=== PATIENT | female | born 1955 | race African-American/Black ===

== ENCOUNTER 2018-02-21 06:50 | Inpatient (IN) | payer MEDICAID ==
[~2018-02-21] VITALS: Ht 162.6 cm; Wt 132.4 kg
[~2018-02-21 06:50] MED LIST: ACET-8386 GT; ACET-8386 PO; ESOM20EC GT; FLO.1 GT; LEVE1000 GT; MULT-1640 GT; [UNRECOGNIZED DRUG - CODE] GT
--- NOTE | 2018-02-21 06:50 | NUR ---
PT BIBA FOR GTUBE DISPLACEMENT PLACED ON CARESCAPE VENT WITH SETTINGS AC16 VT 500 PEEP 5 FIO2 50% ALARMS AUDIBLE AND FUNCTIONING PROPERLY, AMBU BAG AT BEDSIDE, SNX PT FOR C&S SMALL AMT OF THIN WHITE SECRETIONS, B\S ARE COARSE BILATERALLY, PT IS TRACH WITH PORTEX 8 AND SKIN INTEGRITY IS INTACT VENT IS PLUGGED INTO RED OUTLET PT IS AWAKE AND ALERT WITH NO SIGNS OF DISTRESS NOTED AT THIS TIME
--- NOTE | 2018-02-21 06:50 | NUR ---
PATIENT PRESENTS TO ED AFTER REMOVING G-TUBE AT 2:30PM ON 02/20/18. PT BIB EMS. SHE IS NON-VERBAL. SHE IS ON MECH.VENT. VSS UPON ER ARRIVAL. DENIES N/V/D; SKIN IS PINK/WARM/DRY; AAOX4 WITH EVEN AND STEADY GAIT; LUNGS CLEAR BL; HR EVEN AND REGULAR; PT DENIES ANY FEVER, CP, SOB, OR COUGH AT THIS TIME; PATIENT STATES PAIN OF 0/10 AT THIS TIME; VSS; PATIENT POSITIONED FOR COMFORT; HOB ELEVATED; BEDRAILS UP X2; BED DOWN. ER MD MADE AWARE OF PT STATUS. CONTINUE TO MONITOR.
--- NOTE | 2018-02-21 06:50 | NUR ---
PT BIB ALS TO ER BED 06
[2018-02-21 06:53] VITALS: BP 183/87
[2018-02-21 06:55] VITALS: BP 173/58
--- NOTE | 2018-02-21 06:55 | NUR ---
RT AT BEDSIDE PLACED PT ON MECH. VENT. PT BAGGED WITH 100%02 WHILE VENTILATORY PREPARED. PT TOLERATED PROCEDURE WELL.
--- NOTE | 2018-02-21 07:00 | NUR ---
Nancy navas in [facility] - 02/21/18 at 0714 by HARRISS RECE4
--- NOTE | 2018-02-21 07:00 | NUR ---
RECEIVES REPORT FROM TIA MENDEZ FOR CONTINUITY OF CARE.
--- NOTE | 2018-02-21 07:01 | NUR ---
RT AT BED SIDE FOR MECH. VENT SET UP
--- NOTE | 2018-02-21 07:15 | NUR ---
PT TO ER FOR G-TUBE REPLACEMENT S/P PULLING IT OUT YRSTERDAY AT 1430. PER EMS PT IS VENT DEPENDENT AND HAS HX OF CVA AND HX OF AGGRESSIVE BEHAVIOR. NON-AMBULATORY. MINIMAL MOVEMENT IN EXTREMITIES. +PEDAL PULSES, <3SEC CAP REFILL. NO N/V/D NOTED ; SKIN IS PINK/WARM/DRY WITH DRESSING OVER G-TUBE OPENING; AAOX SELF AND FOLLOWS SIMPLE COMMANDS ; LUNGS CLEAR BL WITH SHIGHT EXPRATOPRY WHEEZES ; HR EVEN AND REGULAR; PT IS AFEBRILE. NO SOB NOTED ; PATIENT STATES PAIN OF 0/10 AT THIS TIME; VSS; PATIENT POSITIONED FOR COMFORT; HOB ELEVATED; BEDRAILS UP X2; BED DOWN. ER MD MADE AWARE OF PT STATUS.
[2018-02-21] MEDS ORDERED: LAC GT (07:33)
[2018-02-21] MEDS ORDERED: ROB1 GT (07:33)
[2018-02-21] MEDS ORDERED: OSC500 PO (07:33)
[2018-02-21] MEDS ORDERED: MAGN400S60 GT (07:33)
[2018-02-21] MEDS ORDERED: ARIP30TA1 GT (07:33)
[2018-02-21] MEDS ORDERED: FLO.1 GT (07:33)
[2018-02-21] MEDS ORDERED: VALP-22 GT ×2 (07:33→13:18)
[2018-02-21] MEDS ORDERED: ACET-2619 PO (07:33)
[2018-02-21] MEDS ORDERED: [UNRECOGNIZED DRUG - CODE] RC (07:33)
[2018-02-21] MEDS ORDERED: CHLO480L1 PO (07:33)
[2018-02-21] MEDS ORDERED: ACET-2619 GT (07:33)
[2018-02-21] MEDS ORDERED: NA P133N1 RC (07:33)
[2018-02-21] MEDS ORDERED: ATI.5 GT (07:33)
[2018-02-21] MEDS ORDERED: NACL 0.9% 1,000 ML IV SCH (08:06)
[2018-02-21] MEDS ORDERED: ACETAMINOPHEN 325 MG TAB PO PRN ×2 (08:10→13:15)
[2018-02-21] MEDS ORDERED: DEXTROSE 50% 50 ML SYR IVP PRN (08:10)
[2018-02-21] MEDS ORDERED: ZOLPIDEM 5 MG TAB PO PRN (08:10)
[2018-02-21] MEDS ORDERED: INSULIN LISPRO SLIDING SCALE 100 UNITS/ML VIAL SUBQ PRN (08:10)
--- NOTE | 2018-02-21 08:40 | NUR ---
XRAY AT BEDSIDE
--- NOTE | 2018-02-21 08:45 | NUR ---
AWATING TELE ROOM TO BE READY.
[2018-02-21 08:54] LABS: BASOPHILS % (AUTO) 0.2 % (0.0-2.0); EOSINOPHILS # (AUTO) 0.1 K/uL (0-0.4); EOSINOPHILS % (AUTO) 1.6 % (0.0-4.0); HEMATOCRIT 37.6 % (36-48); HEMOGLOBIN 12.1 g/dL (12.0-16.0); LYMPHOCYTES # (AUTO) 2.9 K/uL (2.5-16.5); LYMPHOCYTES % (AUTO) 37.8 % (20.5-51.1); MEAN CORPUSCULAR HEMOGLOBIN 27 pg (27-31); MEAN CORPUSCULAR HGB CONC 32 g/dL (33-37); MEAN CORPUSCULAR VOLUME 82.2 fL (80-94); MONOCYTES # (AUTO) 0.4 K/uL (0.8-1.0); MONOCYTES % (AUTO) 5.6 % (1.7-9.3); NEUTROPHILS # (AUTO) 4.2 K/uL (1.8-7.7); NEUTROPHILS % (AUTO) 54.8 % (42.2-75.2); PLATELET COUNT (AUTO) 147 K/uL (140-450); RED BLOOD CELL COUNT(AUTO) 4.58 MIL/uL (4.20-5.40); RED CELL DISTRIBUTION WIDTH 15.9 % (11.6-13.7); WHITE BLOOD COUNT (AUTO) 7.7 K/uL (4.8-10.8)
[2018-02-21] MEDS: DOCUSATE SODIUM 100 MG GELCAP PO SCH ×3 (09:00→21:51)
--- NOTE | 2018-02-21 09:02 | NUR ---
VENT CHECK NO SXN NEEDED AIRWAY IS PATENT AND PT IS RESTING
--- NOTE | 2018-02-21 09:20 | NUR ---
PATIENT ARRIVED ON FLOOR VIA GURNEY ACCOMPANIED BY 2 ER NURSES. REPORT RECEIVED FROM BUILDING MANAGER, ALLISON, AT BEDSIDE FOR CONTINUITY OF CARE. PATIENT DIAGNOSIS IS G-TUBE DISPLACEMENT. PATIENT CAME FROM [facility] [place] 2[place] PATIENT ALERT AND AWAKE, SPEECH IS GARBLED, BUT PATIENT CAN VERBALIZED, "NO", "I DON'T WANT IT". IV ACCESS TO L HAND #22 G, INTACT, PATENT, AND ASYMPTOMATIC. PATIENT IS TRACH TO VENT, SETTINGS: AC 16, TV 500, FIO2 50, PEEP 5. NO SIGNS OF DISTRESS OR SOB NOTED. LUNG SOUNDS CLEAR WITH SOME WHEEZES ON EXPIRATORY, BOWEL SOUNDS PRESENT, UPDATED PATIENT ON PLAN OF CARE AND UPDATED THE BOARD. PATIENT HAS DRESSING ON LEFT UPPER MIDDLE QUADRANT WHERE STOMA IS PRESENT. PATIENT ALSO HAS NON INTACT WOUND ON LOWER BUTTOCKS. PICTURE TAKEN. MRSA SCREENING DONE. ORIENTED PATIENT TO ROOM AND CALL LIGHT. SAFETY PRECAUTION IN PLACE, BED ALARM ON, BED ON LOWEST SETTING, CALL LIGHT WITHIN REACH. WILL CONTINUE TO MONITOR PATIENT.
[2018-02-21 09:30] VITALS: BP 169/70
--- NOTE | 2018-02-21 09:30 | NUR ---
Patient will be admitted to care of DR HART. Admited to TELE. Will go to room 123B. Belongings list completed. Report to REED MENDEZ .
--- NOTE | 2018-02-21 09:35 | NUR ---
PATIENT CHANGED INTO NEW GOWN. PATIENT CLEANED AND DRIED. PATIENT TOLERATED IT WELL. SAFETY PRECAUTION IN PLACE, BED ON LOWEST SETTING, CALL LIGHT WITHIN REACH, WILL CONTINUE TO MONITOR PATIENT.
[2018-02-21 09:52] LABS: PROTHROMBIN TIME 11.4 secs (10.8-13.4)
[2018-02-21 10:03] LABS: FREE T4 (FREE THYROXINE) 0.86 ng/dL (0.76-1.46); MAGNESIUM 1.9 mg/dL (1.8-2.4); PHOSPHORUS 3.6 mg/dL (2.5-4.9); THYROID STIMULATING HORMONE 2.35 uIU/mL (0.34-3.74)
--- NOTE | 2018-02-21 10:05 | NUR ---
PATIENT SUCTIONED, SMALL WHITE SECRETIONS PRESENT. PATIENT RESTING IN BED, NO SIGNS OF DISTRESS OR SOB NOTED. SAFETY PRECAUTION IN PLACE, CALL LIGHT WITHIN REACH, WILL CONTINUE TO MONITOR PATIENT.
--- NOTE | 2018-02-21 10:10 | NUR ---
ULTRA SOUND TECH IN TO DO ULTRASOUND. PATIENT YELLED "GET OUT", " I DON'T WANT IT". PATIENT REFUSED.
--- NOTE | 2018-02-21 10:15 | NUR ---
CENTRAL SUPPLY CALLED FOR SCDS FOR PATIENT. SCDS BROUGHT TO FLOOR. PATIENT REFUSED SCDS. PATIENT ALSO REFUSED IV FLUIDS.
--- NOTE | 2018-02-21 11:06 | NUR ---
NEW ORDER IN TO INSERT ADAME CATHETER, INFORMED PATIENT OF THIS. PATIENT AGITATED AND CONFUSED, STARTED YELLING "NO", "GET OUT OF HERE".
--- NOTE | 2018-02-21 11:12 | NUR ---
RT ALLAN IN TO SEE THE PATIENT. PATIENT AGITATED AND YELLED "NO", "GET OUT", "I DON'T WANT IT".
--- NOTE | 2018-02-21 11:14 | NUR ---
vent check, sxn pt small amt of white secretions, pt is agitated no signs of distress noted at this time
--- NOTE | 2018-02-21 11:20 | NUR ---
SPOKE TO RT SANJANA, ABOUT PATIENT'S SPUTUM SAMPLE SAID IT WAS IN GIVEN TO ER STAFF. CALLED LAB, THEY STATED THAT THEY DID NOT RECEIVED SAMPLE YET. ER STAFF STATED THAT IT WAS GIVEN TO BANDAR FROM LAB. LAB CONFIRMED THEY NOW HAVE SPUTUM SAMPLE.
[2018-02-21] MEDS: BLOOD GLUCOSE MONITORING 1 DEV DEV FS SCH ×3 (11:30→20:24)
--- NOTE | 2018-02-21 11:30 | NUR ---
PATIENT REFUSED BLOOD SUGAR CHECK AND BLOOD PRESSURE. PATIENT SHOUTED "NO" " I DON'T WANT IT" "GET OUT OF HERE".
--- NOTE | 2018-02-21 11:32 | NUR ---
ABRASIVE WORKER IN TO DO ECHO, PATIENT YELLED "GET OUT", "I DON'T WANT IT". DR. ANN AWARE.
--- NOTE | 2018-02-21 11:35 | NUR ---
PT REFUSED ECHO, STARTED YELLING "GET OUT" AND BEING VERY COMBATIVE. NOTIFIED DR. ANN AND NURSE.
--- NOTE | 2018-02-21 11:45 | NUR ---
BONILLA RAZO CALLED AT [phone]. SHE IS PATIENT'S DAUGHTER IN LAW, LIVES IN [place]. UPDATED HER WITH PATIENT'S STATUS AND CONDITION. SHE VERBALIZED UNDERSTANDING.
--- NOTE | 2018-02-21 12:11 | NUR ---
DR PRINCE AND DR. ANN IN TO SEE THE PATIENT. WILL AWAIT FOR HIS ORDERS.
--- NOTE | 2018-02-21 12:34 | NUR ---
VENT CHECK, NO SXN REQUIRED AT THIS TIME, AIRWAY IS PATENT AND PT IS SLEEPING WITH NO SIGNS OF DISTRESS NOTED AT THIS TIME
--- NOTE | 2018-02-21 12:43 | NUR ---
RECEIVED INFORMATION FROM DIAZ FROM [employer]. I CALLED HER AT [phone] AND SHE SAID SHE IS THE CM AND TO FAX REVIEW TO [phone]. FAXED INITIAL REVIEW. TRACKING [id number]
[2018-02-21 12:56] LABS: ALBUMIN 2.5 g/dL (3.4-5.0); ANION GAP 8.6 (8-16); CARBON DIOXIDE 30.3 mmol/L (21-32); CREATININE 0.9 mg/dL (0.6-1.3); POTASSIUM 3.9 mmol/L (3.5-5.1); TOTAL BILIRUBIN 0.4 mg/dL (0.0-1.0)
[2018-02-21] MEDS: DEXT 5% / NACL 0.45% 1,000 ML IV SCH ×3 (13:00→23:51)
--- NOTE | 2018-02-21 13:00 | NUR ---
PATIENT WAS SLEEPING, OFFERED TO CHECK HER BLOOD SUGAR AND BLOOD PRESSURE AGAIN, PATIENT SHOUTED "NO", "GET OUT OF HERE", "DON'T TOUCH ME".
[2018-02-21] MEDS ORDERED: MAGNESIUM HYDROXIDE 2400 MG/30 ML UDC GT PRN (13:15)
[2018-02-21] MEDS ORDERED: GLYCOPYRROLATE 1 MG TAB GT SCH (13:15)
[2018-02-21] MEDS ORDERED: HYDROcodone/APAP 5/325 MG 1 TAB TAB GT PRN ×2 (13:15)
[2018-02-21] MEDS ORDERED: BISACODYL 10 MG SUPP RC PRN (13:15)
[2018-02-21] MEDS ORDERED: ACETAMINOPHEN 325 MG TAB GT PRN (13:15)
--- NOTE | 2018-02-21 13:15 | NUR ---
DR. WOODARD IN TO SEE THE PATIENT. WILL WAIT FOR HIS UPDATED ORDERS.
--- NOTE | 2018-02-21 13:20 | NUR ---
NEW ORDERS IN FOR MEDICATIONS VIA GTUBE. DR. GARRISON INFORMED THAT PATIENT CURRENTLY DOES NOT HAVE GTUBE. NEW GTUBE WILL BE INSERTED BY DR. PRINCE TOMORROW 02/22/18. DR. GARRISON AWARE. NO NEW ORDERS AT THE MOMENT.
--- NOTE | 2018-02-21 14:04 | NUR ---
PATIENT'S SON, PARMINDER RAZO, WAS CALLED. HE VERBALLY GAVE CONSENT VIA TELEPHONE FOR PATIENT'S EGD WITH PEG PROCEDURE TOMORROW 02/22/[address] PRINCE. WITNESSED BY END STAPLER, KAT, AND DR. GARRISON. PATIENT NOW RESTING IN BED, SLEEPING, NO SIGNS OF DISTRESS OR SOB NOTED. BREATHING EVEN AND UNLABORED. SAFETY PRECAUTION IN PLACE, CALL LIGHT WITHIN REACH, WILL CONTINUE TO MONITOR PATIENT.
--- NOTE | 2018-02-21 14:24 | NUR ---
PATIENT SLEEPING SOUNDLY IN BED, NO SIGNS OF DISTRESS OR SOB NOTED. SAFETY PRECAUTION IN PLACE, CALL LIGHT WITHIN REACH, WILL CONTINUE TO MONITOR PATIENT.
[2018-02-21] MEDS ORDERED: ALBUTEROL SULFATE/IPRATROPIU 3 ML SOL IH PRN (14:50)
[2018-02-21] MEDS ORDERED: GLYCOPYRROLATE 1 MG TAB GT PRN (14:50)
[2018-02-21] MEDS ORDERED: ENALAPRILAT 2.5 MG/2 ML VIAL IVP PRN (14:55)
--- NOTE | 2018-02-21 15:00 | NUR ---
VENT CHECK, NO SXN NEEDED AIRWAY IS PATENT AND PT IS SLEEPING WITH NO SIGNS OF DISTRESS NOTED AT THIS TIME Addendum: 02/21/18 at 1503 by Karol Brannon RT DECREASED FIO2 TO 40%
[2018-02-21 16:00] VITALS: BP 159/79
[2018-02-21] MEDS ORDERED: Z-GUARD PASTE TP ONE (16:10)
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
[2018-02-21] MEDS: Z-GUARD PASTE TP SCH (17:10)
--- NOTE | 2018-02-21 17:10 | NUR ---
BLOOD SUGAR 86, NO INSULIN COVERAGE NEEDED. PATIENT RESTING IN BED, SAFETY PRECAUTION IN PLACE, CALL LIGHT WITHIN REACH, WILL CONTINUE TO MONITOR PATIENT.
--- NOTE | 2018-02-21 17:15 | NUR ---
vent check, sxn pt moderate amt of thick white secretions, trach care done : changed trach gauze and inner cannula pt is awake with no signs of distress noted
--- NOTE | 2018-02-21 19:20 | NUR ---
REPORT GIVEN TO SALES ACCOUNT COORDINATOR NURSE AT BEDSIDE FOR CONTINUITY OF CARE. PATIENT IN STABLE CONDITION.
--- NOTE | 2018-02-21 19:20 | NUR ---
RECEIVED PATIENT LYING BED ON VENTILATOR.IV INFUSING WELL AND FC IN PLACE. CALL LIGHT WITHIN REACH. WILL CONTINUE TO MONITOR.
[2018-02-21] MEDS ORDERED: NON-FORMULARY ITEM (Chlorhexidine Gluconate (Periogard 480 Ml) 15 ML) PO SCH (19:30)
--- NOTE | 2018-02-21 19:46 | NUR ---
PT IN THE SAME VENT SETTINGS, NO SECRETION, PT ALERT AND AWAKE, NO DISTRESS NOTED
[2018-02-21 20:00] VITALS: BP 117/57
[2018-02-21] MEDS: levETIRAcetam 100 MG/ML ORASYR GT SCH ×2 (21:00→21:49)
[2018-02-21] MEDS ORDERED: CALCIUM CARBONATE 500 MG TAB GT SCH (21:00)
[2018-02-21] MEDS: VALPROIC ACID 250 MG/5 ML UDC GT SCH (21:00)
[2018-02-21] MEDS ORDERED: VALPROIC ACID 250 MG/5 ML UDC GT SCH (21:00)
--- NOTE | 2018-02-21 21:00 | NUR ---
MEDS NOT GIVEN DUE TO G-TUBE DISPLACEMENT. RESIDENT AWARE.
--- NOTE | 2018-02-21 21:20 | NUR ---
PATIENT TURNED AND REPOSITIONED. PATIENT IN COMFORTABLE POSITION. PATIENT HAVE SOME RESISTANCE DURING REPOSITIONING ASSISTED BY CLINICAL ANALYST FOR SAFETY. WILL CONTINUE TO MONITOR.
--- NOTE | 2018-02-21 22:58 | NUR ---
SEEN PATIENT ASLEEP ON BED WITH TRACH TO VENT. MEDS NOT GIVEN DUE TO G-TUBE DISPLACEMENT. RESIDENT AWARE. NO S/S OF DISTRESS NOTED AT THIS TIME. WILL CONTINUE TO MONITOR.
--- NOTE | 2018-02-21 23:20 | NUR ---
PATIENT REFUSED TO BE REPOSITION AND BECOME AGITATED.
[2018-02-21 23:58] VITALS: BP 140/72
[2018-02-22] VITALS (7 sets, daily range): BP systolic 139–155; BP diastolic 68–93
[2018-02-22 00:26] LABS: APPEARANCE,URINE SL CLOUDY (CLEAR); BILIRUBIN,URINE NEGATIVE (NEGATIVE); BLOOD, URINE 2+ (NEGATIVE); COLOR,URINE YELLOW (YELLOW); LEUKOCYTE ESTERASE ,URINE 3+ (NEGATIVE); NITRITE, URINE NEGATIVE (NEGATIVE); PH,URINE 8.5 (5.0-9.0); UGLUCOSE NEGATIVE (NEGATIVE)
[2018-02-22 00:52] LABS: RBC,URINE 20-50 /HPF (0-5)
[2018-02-22 00:53] LABS: WBC,URINE TOO MANY TO COUNT /HPF (0-5)
--- NOTE | 2018-02-22 02:43 | NUR ---
AM/ALISA CARE DONE. PATIENT REPOSITIONED TO HER SIDE WITH 3 PEOPLE ASSIST. PATIENT RESISTANCE DURING THE AM CARE. NO S/S OF DISTRESS NOTED AT THIS TIME. WILL CONTINUE TO MONITOR.
--- NOTE | 2018-02-22 04:25 | NUR ---
SEEN PATIENT ASLEEP COMFORTABLE WITH TRACH TO VENT. NO S/S OF DISTRESS NOTED AT THIS TIME. WILL CONTINUE TO MONITOR.
[2018-02-22] MEDS: VALPROIC ACID 250 MG/5 ML UDC GT SCH ×3 (05:00→20:34)
[2018-02-22] MEDS: BLOOD GLUCOSE MONITORING 1 DEV DEV FS SCH ×4 (05:36→20:51)
--- NOTE | 2018-02-22 06:35 | NUR ---
RECEIVED PT ON NOTED SETTINGS PTS TRACH PORTEX 8 IS SECURE PT IN HF ASLEEP NO APPARENT DISTRESS BMV HOB ALARMS ARE ON AND AUDIBLE VENT PLUGGED INTO RED OUTLET
[2018-02-22 06:38] LABS: BASOPHILS % (AUTO) 0.2 % (0.0-2.0); EOSINOPHILS # (AUTO) 0.1 K/uL (0-0.4); EOSINOPHILS % (AUTO) 0.9 % (0.0-4.0); HEMATOCRIT 37.3 % (36-48); LYMPHOCYTES # (AUTO) 3.9 K/uL (2.5-16.5); MEAN CORPUSCULAR HEMOGLOBIN 27 pg (27-31); MEAN CORPUSCULAR HGB CONC 32 g/dL (33-37); MEAN CORPUSCULAR VOLUME 82.7 fL (80-94); MONOCYTES # (AUTO) 0.6 K/uL (0.8-1.0); MONOCYTES % (AUTO) 7.2 % (1.7-9.3); NEUTROPHILS # (AUTO) 4.2 K/uL (1.8-7.7); NEUTROPHILS % (AUTO) 47.7 % (42.2-75.2); PLATELET COUNT (AUTO) 144 K/uL (140-450); RED BLOOD CELL COUNT(AUTO) 4.51 MIL/uL (4.20-5.40); RED CELL DISTRIBUTION WIDTH 15.8 % (11.6-13.7); WHITE BLOOD COUNT (AUTO) 8.9 K/uL (4.8-10.8)
[2018-02-22 06:58] LABS: ANION GAP 11.9 (8-16); POTASSIUM 3.9 mmol/L (3.5-5.1)
[2018-02-22 07:05] LABS: MAGNESIUM 1.8 mg/dL (1.8-2.4); PHOSPHORUS 3.5 mg/dL (2.5-4.9)
[2018-02-22 07:07] LABS: CHOL/HDL RATIO 3.3 (1-4.5)
--- NOTE | 2018-02-22 07:20 | NUR ---
RECEIVED PT REPORT FROM GUEST ADVISOR RN. PT IS SLEEPING, AROUSED TO NAME. EGD/PEG SCHEDULE AT 1000, MADE PT AWARE. PATIENT CAME FROM [facility]. IV ACCESS TO L HAND #22 G, INTACT, PATENT, AND ASYMPTOMATIC. PATIENT HAS DRESSING ON UPPER ABD. PATIENT IS TRACH TO VENT, SETTINGS: AC 16, TV 500, FIO2 40, PEEP 5. ON O2 MONITORING, 99% SAT. NO SIGNS OF DISTRESS OR SOB NOTED. LUNG SOUNDS CLEAR, BOWEL SOUND PRESENTED. UPDATED THE BOARD. SAFETY PRECAUTION IN PLACE, BED ALARM ON, BED ON LOWEST SETTING, CALL LIGHT WITHIN REACH. WILL CONTINUE TO MONITOR PATIENT.
--- NOTE | 2018-02-22 07:23 | NUR ---
ENDORSEMENT GIVEN TO AM SHIFT NURSE FOR CONTINUITY OF CARE. PATIENT IN STABLE CONDITION.
--- NOTE | 2018-02-22 08:50 | NUR ---
SPOKE WITH DR GARRISON REGARDING ROCEPHIN. HE SAID THE ALLERGIC RXN IS RASH. OK TO GIVE BUT JUST MONITOR FOR ANAPHYLACTIC RXN.
[2018-02-22] MEDS ORDERED: LACTOBACILLUS ACIDOPHILUS GT SCH (09:00)
[2018-02-22] MEDS ORDERED: [UNRECOGNIZED DRUG - OTHER] GT SCH (09:00)
[2018-02-22] MEDS ORDERED: [UNRECOGNIZED DRUG - OTHER] GT SCH (09:00)
[2018-02-22] MEDS ORDERED: VIT K GT SCH (09:00)
[2018-02-22] MEDS ORDERED: IRON GT SCH (09:00)
[2018-02-22] MEDS ORDERED: MULTIVITAMIN MIN GT SCH (09:00)
[2018-02-22] MEDS ORDERED: fentaNYL 0.05 MG/ML VIAL ONE (09:43)
[2018-02-22] MEDS ORDERED: MIDAZOLAM 2 MG/2 ML VIAL ONE (09:43)
[2018-02-22] MEDS: DEXT 5% / NACL 0.45% 1,000 ML IV SCH ×2 (09:49→23:31)
--- NOTE | 2018-02-22 10:05 | NUR ---
NO S/S OF ANAPHYLACTIC REACTION NOTED. NO RASH OR HIVES, NO SWELLING, NO RESPIRATORY DISTRESS NOTED.
--- NOTE | 2018-02-22 12:21 | NUR ---
INCREASE FIO2 TO [address] PRINCE PT DESAT
--- NOTE | 2018-02-22 12:27 | NUR ---
DECREASE FIO2 TO PREVIOUS 40 SPO2 99
[2018-02-22] MEDS ORDERED: diphenhydrAMINE 50 MG/ML VIAL ONE (12:52)
--- NOTE | 2018-02-22 13:00 | NUR ---
Social Workers Notes : I attempted to call BONILLA RAZO at [phone]. No response and I left her a voicemail MGS with my contact information and request for call back.
--- NOTE | 2018-02-22 13:25 | NUR ---
PEG TUBE INSERTED BY DR Keith PRINCE, RESIDUAL CHECKED 0ML, 30ML GAS. MEDICATIONS INCLUDING 9 CLOCK MED GIVEN BY GRAVITY. OK TO GIVE [address] GARRISON. PT TOLERATED WELL.
[2018-02-22] MEDS ORDERED: fentaNYL 0.05 MG/ML VIAL IVP ONE (13:30)
[2018-02-22] MEDS ORDERED: MIDAZOLAM 2 MG/2 ML VIAL IVP ONE (13:30)
[2018-02-22] MEDS ORDERED: diphenhydrAMINE 50 MG/ML VIAL IVP ONE (13:30)
[2018-02-22] MEDS: levETIRAcetam 100 MG/ML ORASYR GT SCH ×2 (13:33→20:34)
[2018-02-22] MEDS: DOCUSATE SODIUM 100 MG GELCAP PO SCH ×2 (13:34→20:34)
[2018-02-22] MEDS: LACTOBACILLUS RHAMNOSUS GG 1 EACH CAP GT SCH (13:34)
[2018-02-22] MEDS: MULTIVITAMIN/MINERALS 15 ML UDBTL GT SCH (13:34)
[2018-02-22] MEDS: ARIPiprazole 10 MG TAB GT SCH (13:34)
[2018-02-22] MEDS: FLUDROCORTISONE 0.1 MG TAB GT SCH (13:35)
--- NOTE | 2018-02-22 14:06 | NUR ---
02/22/18 RD INITIAL ASSESSMENT COMPLETED PLEASE REFER TO NUTRITION ASSESSMENT UNDER CARE ACTIVITY FOR ESTIMATED NUTRITIONAL NEEDS. 1. CONTINUE NPO DIET MEDICALLY NECESSARY. 2. WHEN APPROPRIATE, RECOMMEND TUBE FEEDING THROUGH PEG TUBE: PEPTAMEN AF AT GOAL RATE OF 45 ML/HR (1080 TOTAL ML) WITH 75ML Q4H WATER FLUSHES, PROVIDING 1296 KCAL, 82 GM PROTEIN, AND 873ML FREE WATER. GOAL RATE IS ADEQUATE TO MEET 104% OF ESTIMATED KCAL NEEDS. 3. RECOMMEND PROSOURCE NO CARB TID (180 KCAL/DAY, 45GM PROTEIN/DAY) TO BETTER MEET ESTIMATED PROTEIN NEEDS. WITH TF FORMULA, THIS ADEQUATELY MEETS 89% PROTEIN NEEDS. 4. RD TO FOLLOW-UP 2-3 DAYS, HIGH RISK DASHAWN KIM RD
--- NOTE | 2018-02-22 15:02 | NUR ---
WOUND CARE EVALUATION NOTE: REASON FOR WOUND EVALUATION: LEFT BUTTOCK AND SACRAL WOUNDS SKIN ASSESSMENT DONE WITH PRIMARY RN ON THIS 62 Y/O FEMALE PATIENT FROM [facility] TO [facility], WITH INITIAL DIAGNOSIS OF DISLODGED OF G-TUBE. PAST MEDICAL HISTORY INCLUDE HTN, COPD, DM, SEIZURE AND GERD. ALL ABOVE INFORMATION WAS OBTAINED FROM THE ADMISSION H&P. LABS ARE WBC 8.9, H/H 12/37.3, GLUCOSE 100 AND, ALBUMIN 2.5. TRACH TO VENT. PT SKIN WARM TO TOUCH, NO EDEMA, BLE WITH NO HAIR GROWTH AND BILATERAL PEDAL PULSES PRESENT AND NORMAL. #16 F/C PATENT WITH CLEAR LARGE AMOUNT OF URINE OUTPUT. INCONTINENT OF BOWEL. PLAN OF CARE AND PRESSURE PREVENTIVE MEASURES DISCUSSED WITH PRIMARY RN. CLARIFICATION: NO ACTIVE WOUNDS TO LEFT BUTTOCK AND SACRAL. BOTH AREAS SKIN INTACT. INTEGUMENTARY: -TRACH ALISA-STOMA SKIN CLEAN AND INTACT -MID ABDOMEN OLD HEALED SURGICAL SCAR - MID ABDOMEN OLD GT SITE REDNESS, WITH SMALL AMOUNT OF DRY BLOOD. -LUQ NEW GT SITE, ALISA- STOMA SKIN DRY AND CLEAN -INTERTRIGO TO LOWER ABDOMINAL FOLD - INCONTINENT ASSOCIATE DERMATITIS REDNESS TO INTERGLUTEAL CLEFT AND GROOVE BETWEEN BUTTOCKS -INCONTINENT ASSOCIATE DERMATITIS TO R/L POSTERIOR THIGHS WITH PARTIAL THICKNESS EROSION, NO ODOR, MOIST TO TOUCH, RIGHT POSTERIOR THIGH 6X11X0.1 CM AND LEFT POSTERIOR THIGH 7X15 CM RECOMMENDATIONS: -CLEANSE MID ABDOMEN OLD GT SITE WITH NS. PAT DRY, APPLY DRY DRESSING QD -APPLY INTER DRY TO LOWER ABDOMINAL FOLD CHANGE Q7 DAYS AND PRN. -CLEANSE INTERGLUTEAL CLEFT AND GROOVE BETWEEN BUTTOCKS WITH MILD SOAP AND WATER, PAT DRY, APPLY HYDRAGUARD BID WC AND PRN IF SOILING -CLEANSE R/L POSTERIOR THIGHS IAD WITH MILD SOAP AND WATER, PAT DRY, APPLY Z- GUARD BID WC AND PRN IF SOILING -TURN AND REPOSITION PATIENT Q2H -ASSESS AND MONITOR SKIN CONDITION DURING POSITION CHANGE, PLEASE PAY ATTENTION TO POSTERIOR THIGHS -OFFLOAD BILATERAL HEELS BY PLACING PILLOWS UNDER CALVES AT ALL TIMES, UNLESS OTHERWISE CONTRAINDICATED-KEEP -KEEP SKIN CLEAN AND DRY AT ALL TIMES APPLY SKIN LOTION TO BLE. -PRESSURE REDISTRIBUTION SURFACE THERAPY RECOMMENDATIONS DISCUSSED WITH PRIMARY RN AND DR. FRANK WILL FOLLOW UP PATIENT Q 7-10 DAYS AND PRN. PLEASE CONTACT WOUND CARE NURSE FOR ANY QUESTIONS AND CHANGES IN WOUND CONDITION.
[2018-02-22] MEDS: Z-GUARD PASTE TP SCH (15:13)
--- NOTE | 2018-02-22 15:13 | NUR ---
Clinical review faxed to [facility] at [phone]
--- NOTE | 2018-02-22 16:00 | NUR ---
Field Director Notes: I attempted to contact Admissions Office at [facility] Saranya Vincent. . No response I waited on hold and finally transfer to a voicemail. I left a MGS with a request for a call back
--- NOTE | 2018-02-22 17:00 | NUR ---
PEPTAMEN AF FEEDING VIA G TUBE STARTED. RUNNING 10ML/HR. WILL INCREASE TO 20ML/HR AT 2100.
--- NOTE | 2018-02-22 19:17 | NUR ---
ENDORSED PT TO LINEN ROOM CUSTODIAN RN, REPORT GIVEN AT BEDSIDE. PT IN STABLE CONDITION.
--- NOTE | 2018-02-22 19:18 | NUR ---
RECEIVED PT IN STABLE CONDITION FROM AM NURSE. ON BEDREST. WITH TRACH TO VENT. SLEEPING BUT AROUSE EASILY WHEN NAME CALLED. APHASIC. NO ACUTE RESPIRATORY DISTRESS . BREATHING EVEN AND UNLABORED. RT CAME AND ASSESSED PT. VITAL SIGNS ARE STABLE . O2 SAT 99%. WITH GT FEEDING INFUSING ON LUQ GT SITE ,CLEAN, NO REDNESS. MID ABDOMEN OLD GT SITE WITH DRESSING ,CLEAN AND DRY. LOWER ABDOMEN WITH INTER DRY DRESSING. ADAME CATHETER TO GRAVITY WITH DARK LULY COLORED URINE OUTPUT. INCONTINENT DERMATITIS ON BUTTOCKS AND SACRAL AREA. BOTH THIGH WITH PARTIAL THICKNESS. ON WOUND BED. AND BLE WITH SCD MACHINE ON. BED ON LOWEST POSITION. FREQUENT ROUNDS NEEDED. CALL LIGHT PLACED WITHIN EASY REACH. WILL CONTINUE TO MONITOR.
--- NOTE | 2018-02-22 21:00 | NUR ---
REPOSITIONED PT FOR COMFORT. NO BM NOTED. CHECKED RESIDUAL TO SEE IF PT TOLERATING FEEDING. NO RESIDUAL NOTED. . INCREASED RATE BY 1OML PER ORDER. NOW RUNNING 20ML/HR. WILL CONTINUE TO MONITOR.
--- NOTE | 2018-02-22 21:40 | NUR ---
VENT ALARMING AND PT WITH SOME COUGHING NOTED. SUCTIONED PT . OBTAINED THIN WHITE SECRETIONS IN SCANTY AMOUNT. PT FELT BETTER AFTER . WILL CONTINUE TO MONITOR.
--- NOTE | 2018-02-22 22:30 | NUR ---
MADE ROUNDS. PT ASLEEP. NO RESPIRATORY DISTRESS NOTED.
[2018-02-23] VITALS (11 sets, daily range): BP systolic 0–146; BP diastolic 0–61
[2018-02-23] MEDS: DEXT 5% / NACL 0.45% 1,000 ML IV SCH (00:15)
--- NOTE | 2018-02-23 01:00 | NUR ---
CHECKED GT FEEDING RESIDUAL WITH 20 ML /HR. PT TOLERATED WELL , NO RESIDUAL NOTED. INCREASED RATE BY 10 ML, NOW INFUSING 30ML/HR. WILL STILL CONTINUE TO MONITOR.
--- NOTE | 2018-02-23 03:50 | NUR ---
LT HAND #22 IV ACCESS INFILTRATED. DISCONTINUED. A NEW IV ACCESS STARTED ON THE LT HAND FINGER G#24. CLEAR AND PATENT. IV FLUIDS INFUSING WELL.
--- NOTE | 2018-02-23 05:00 | NUR ---
GT FEEDING INCREASED RATE TO 40 ML. PT IS TOLERATING WELL. WILL CONTINUE TO MONITOR .
[2018-02-23] MEDS: VALPROIC ACID 250 MG/5 ML UDC GT SCH ×3 (05:06→21:31)
[2018-02-23] MEDS: BLOOD GLUCOSE MONITORING 1 DEV DEV FS SCH ×4 (06:00→21:32)
--- NOTE | 2018-02-23 06:00 | NUR ---
BLOOD WAS DRAWN THIS AM . WILL FOLLOW UP RESULT.
[2018-02-23 06:36] LABS: BASOPHILS % (AUTO) 0.2 % (0.0-2.0); EOSINOPHILS # (AUTO) 0.1 K/uL (0-0.4); EOSINOPHILS % (AUTO) 0.5 % (0.0-4.0); HEMATOCRIT 34.6 % (36-48); HEMOGLOBIN 11.2 g/dL (12.0-16.0); LYMPHOCYTES # (AUTO) 3.2 K/uL (2.5-16.5); LYMPHOCYTES % (AUTO) 26.1 % (20.5-51.1); MEAN CORPUSCULAR HEMOGLOBIN 27 pg (27-31); MEAN CORPUSCULAR HGB CONC 32 g/dL (33-37); MEAN CORPUSCULAR VOLUME 82.2 fL (80-94); MONOCYTES # (AUTO) 0.7 K/uL (0.8-1.0); MONOCYTES % (AUTO) 5.5 % (1.7-9.3); NEUTROPHILS # (AUTO) 8.4 K/uL (1.8-7.7); NEUTROPHILS % (AUTO) 67.7 % (42.2-75.2); PLATELET COUNT (AUTO) 133 K/uL (140-450); RED BLOOD CELL COUNT(AUTO) 4.21 MIL/uL (4.20-5.40); RED CELL DISTRIBUTION WIDTH 15.9 % (11.6-13.7); WHITE BLOOD COUNT (AUTO) 12.4 K/uL (4.8-10.8)
[2018-02-23 06:56] LABS: ANION GAP 12.2 (8-16); CREATININE 0.9 mg/dL (0.6-1.3); MAGNESIUM 1.7 mg/dL (1.8-2.4); PHOSPHORUS 3.8 mg/dL (2.5-4.9); POTASSIUM 3.2 mmol/L (3.5-5.1)
--- NOTE | 2018-02-23 07:15 | NUR ---
ENDORSED PT IN STABLE CONDITION TO AM NURSE.
--- NOTE | 2018-02-23 07:30 | NUR ---
RECEIVED PT REPORT FROM BLASTING HELPER RN. PT IS AAOX1. IV ACCESS TO L RING FINGER #24 G, INTACT, PATENT, AND ASYMPTOMATIC. PATIENT HAS G TUBE LUQ RUNNING PEPTAMEN AF AT 40ML/HR. PATIENT IS TRACH TO VENT, SETTINGS: AC 16, TV 500, FIO2 40, PEEP 5. ON O2 MONITORING, 99% SAT. NO SIGNS OF DISTRESS OR SOB NOTED. LUNG SOUNDS CLEAR, BOWEL SOUND PRESENTED. UPDATED THE BOARD. SAFETY PRECAUTION IN PLACE, BED ALARM ON, BED ON LOWEST SETTING, CALL LIGHT WITHIN REACH. WILL CONTINUE TO MONITOR PATIENT.
--- NOTE | 2018-02-23 07:32 | NUR ---
RECEIVED ON A BHR GroupAPE R860 VENTILATOR PLUGGED INTO RED OUTLET TOLERATING WELL WITHOUT ADVERSE REACTIONS NOTED TO A PORTEX DCT # 8 AIRWAY SECURED WITH A TRACH TIE CUFF PRESSURE CHECKED NOTED AMBU BAG NOTED AT HOB LOC ASLEEP EASILY AWAKENS BREATH SOUNDS RALES BILATERAL WITH GOOD CHEST RISE DEEP TRACHEAL SUCTION FOR SMALL THICK YELLOW SECRETIONS AIRWAY PATENT Addendum: 02/23/18 at 0754 by Cornelio Barger RT EZEKIEL MASTERS CONTINUOS PULSE OXIMETRY AT BEDSIDE ON AND FUNCTIONING WELL LOW SATURATION ALARM SET AT 92%
--- NOTE | 2018-02-23 09:20 | NUR ---
NEW IV CATH INSERTED ON RIGHT RA 22G BY SLOANE MENDEZ. REMOVED IV CATH ON LEFT HAND, 24 G TIP INTACT. PRESSURE APPLIED.
--- NOTE | 2018-02-23 09:27 | NUR ---
AWAKE NO DISTRESS NOTED GOOD CHEST RISE ULTRA SOUNDS IN PROGRESS
[2018-02-23] MEDS ORDERED: POTASSIUM CHLORIDE 20% 40 MEQ/15 ML UDC GT SCH (09:30)
--- NOTE | 2018-02-23 09:30 | NUR ---
G TUBE FEEDING ADJUSTED TO 50ML/HR. PT TOLERATED WELL.
[2018-02-23] MEDS: MULTIVITAMIN/MINERALS 15 ML UDBTL GT SCH (10:12)
[2018-02-23] MEDS: FLUDROCORTISONE 0.1 MG TAB GT SCH (10:13)
[2018-02-23] MEDS: DOCUSATE SODIUM 100 MG GELCAP PO SCH (10:13)
[2018-02-23] MEDS: ARIPiprazole 10 MG TAB GT SCH (10:13)
[2018-02-23] MEDS: LACTOBACILLUS RHAMNOSUS GG 1 EACH CAP GT SCH (10:13)
[2018-02-23] MEDS: levETIRAcetam 100 MG/ML ORASYR GT SCH ×2 (11:10→21:26)
--- NOTE | 2018-02-23 11:25 | NUR ---
ASLEEP EASILY AWAKENS PATIENT PRESENTING WITH INCREASED PEAK PRESSURE DUE TO CURRENT BREATH SOUNDS OF RHONCHI WITH DIFFUSED EXP WHEEZE BILATERAL GOOD CHEST RISE DEEP TRACHEAL SUCTION FOR LARGE THICK YELLOW SECRETIONS AIRWAY PATENT HHN PRN THERAPY GIVEN AT THIS TIME BREATH SOUNDS IMPROVED TO CLEAR AT LEFT SIDE WITH RALES AT RIGHT SIDE
--- NOTE | 2018-02-23 11:30 | NUR ---
BED BATH GIVEN. PT WAS AGITATED WHEN CLEANING THE ARM PIT AND ALISA AREA. EXPLAINED TO PT WE NEED TO CLEAN HER AND IT'S GOOD FOR HER SKIN. TOLD PT TO RELAX. PT STILL AGITATED. CLEAN PT THE BEST WE CAN.
[2018-02-23] MEDS ORDERED: Z-GUARD PASTE TP ONE (11:58)
[2018-02-23] MEDS: MAG SULF 2000 MG/WATER PREMIX 50 ML IV SCH ×2 (12:21→14:19)
--- NOTE | 2018-02-23 14:10 | NUR ---
GOOD CHEST RISE DEEP TRACHEAL SUCTION FOR MODERATE THICK YELLOW SECRETIONS AIRWAY PATENT
--- NOTE | 2018-02-23 14:14 | NUR ---
Clinical review faxed to [facility] at [phone]
[2018-02-23] MEDS: CHLORHEXADINE GLUC 2% CLOTH TP SCH (14:45)
--- NOTE | 2018-02-23 15:06 | NUR ---
Nurse Transition Notes: I call Mrs. Edith Ventura at to provide patient's status, discuss, confirm , and gather patient's information. Per Mrs. Edith Ventura she and Benjamin Ventura (Patient's son) are the healthcare decision makers and they are on agreement for patient's treatment during hospitalization at [facility] and would like Patient to return back to [facility] facility after patient is clear for discharge. Mrs. Ventura did not have questions at the time. Nurse Transition and Gift Basket Packer will follow up as needed.
--- NOTE | 2018-02-23 15:55 | NUR ---
NO RESPIRATORY DISTRESS NOTED BREATH SOUNDS CLEAR BILATERAL WITH GOOD CHEST RISE AND AERATION THROUGHOUT AIRWAY PATENT
--- NOTE | 2018-02-23 16:05 | NUR ---
SATURATION 100% ON FIO2 OF 40% TITRATED FIO2 TO 30% COREEN/RN NOTIFIED
[2018-02-23] MEDS: MUPIROCIN 2% OINT 22 GM TUBE TP SCH (16:14)
[2018-02-23] MEDS: Z-GUARD PASTE TP SCH (16:15)
--- NOTE | 2018-02-23 16:30 | NUR ---
REPOSITIONED PT, Z GUARD APPLIED, COMPOSITE DRESSING CHANGED.
--- NOTE | 2018-02-23 17:29 | NUR ---
RESTING COMFORTABLY WITH NO EVIDENCE OF PULMONARY DISTRESS NOTED GOOD CHEST RISE SATURATION 92% ON FIO2 OF 30% INCREASED FIO2 TO 35% COREEN/RN AWARE
--- NOTE | 2018-02-23 19:25 | NUR ---
REPORT GIVEN TO KICKBOXING INSTRUCTOR RN. PT IN STABLE CONDITION.
--- NOTE | 2018-02-23 19:47 | NUR ---
RECEIVED PT ON PORTEX DCT 8 WITH VENT SETTINGS: AC/VC 500 RR 16, FI02 35%, PEEP 5. AIRWAY IS SECURED AND PATENT. VENT IS PLUGGED INTO RED OUTLET AND AMBUBAG IS AT BEDSIDE. VENT ALARMS ARE FUNCTIONING AND AUDIBLE. NO RESPIRATORY DISTRESS NOTED. WILL CONTINUE TO MONITOR.
--- NOTE | 2018-02-23 20:31 | NUR ---
DUE MEDICATION GIVEN, PT TOLERATED WELL, NO DISTRESS NOTED, CALL LIGHT WITHIN REACH, WILL CONTINUE TO MONITOR.
--- NOTE | 2018-02-23 21:22 | NUR ---
RCV'D PT ON CARESCAPE VENTILATOR SETTINGS ARE AC 16,500,35%,+5. PT HAS PORTEX 8 DCT TRACH. TRACH IS IN PLACE AND SECURED. VENT IS CONNECTED TO RED OUTLET. ALARMS ARE AUDIBLE. AMBU BAG AT BEDSIDE. PT IS AWAKE AND ALERT AND FOLLOW MINIMAL COMMANDS. NO SXN NEEDED AT THIS TIME. NO SOB OR DISTRESS NOTED. CLEAR BREATH SOUNDS. WILL CONTINUE TO MONITOR.
[2018-02-23] MEDS: DOCUSATE 100 MG/10 ML UDC PO SCH (21:27)
--- NOTE | 2018-02-23 23:10 | NUR ---
PT A LITTLE AGITATED, UNABLE TO SLEEP, SLEEPING MEDICATION GIVEN, PT TOLERATED WELL, NO DISTRESS NOTED, CALL LIGHT WITHIN REACH, WILL CONTINUE TO MONITOR.
[2018-02-24] VITALS (7 sets, daily range): BP systolic 118–150; BP diastolic 49–98
--- NOTE | 2018-02-24 02:40 | NUR ---
CHANGED, CLEANED AND REPOSITIONED PT, PT TOLERATED WELL, NO DISTRESS NOTED, CALL LIGHT WITHIN REACH, WILL CONTINUE TO MONITOR.
[2018-02-24] MEDS: VALPROIC ACID 250 MG/5 ML UDC GT SCH ×3 (04:05→20:50)
--- NOTE | 2018-02-24 04:05 | NUR ---
DUE MEDICATION ADMINISTERED, PT TOLERATED WELL, NO DISTRESS NOTED, V/S TAKEN, PT STABLE, CALL LIGHT WITHIN REACH, WILL CONTINUE TO MONITOR.
[2018-02-24] MEDS: BLOOD GLUCOSE MONITORING 1 DEV DEV FS SCH ×4 (06:00→20:56)
[2018-02-24 06:42] LABS: BASOPHILS % (AUTO) 0.2 % (0.0-2.0); EOSINOPHILS # (AUTO) 0.1 K/uL (0-0.4); EOSINOPHILS % (AUTO) 1.6 % (0.0-4.0); HEMATOCRIT 34.6 % (36-48); HEMOGLOBIN 11.1 g/dL (12.0-16.0); LYMPHOCYTES # (AUTO) 3.1 K/uL (2.5-16.5); MEAN CORPUSCULAR HEMOGLOBIN 27 pg (27-31); MEAN CORPUSCULAR HGB CONC 32 g/dL (33-37); MEAN CORPUSCULAR VOLUME 82.4 fL (80-94); MONOCYTES # (AUTO) 0.6 K/uL (0.8-1.0); NEUTROPHILS # (AUTO) 5.6 K/uL (1.8-7.7); NEUTROPHILS % (AUTO) 59.2 % (42.2-75.2); PLATELET COUNT (AUTO) 132 K/uL (140-450); RED CELL DISTRIBUTION WIDTH 15.6 % (11.6-13.7); WHITE BLOOD COUNT (AUTO) 9.4 K/uL (4.8-10.8)
[2018-02-24 06:54] LABS: ANION GAP 11.9 (8-16); CARBON DIOXIDE 25.7 mmol/L (21-32); CREATININE 0.9 mg/dL (0.6-1.3); POTASSIUM 3.6 mmol/L (3.5-5.1)
[2018-02-24 07:03] LABS: MAGNESIUM 2.3 mg/dL (1.8-2.4); PHOSPHORUS 3.7 mg/dL (2.5-4.9)
--- NOTE | 2018-02-24 07:15 | NUR ---
ENDORSED PLAN OF CARE TO DAY SHIFT NURSE VITALIY MENDEZ, PT STABLE, NO DISTRESS NOTED, CALL LIGHT WITHIN REACH.
--- NOTE | 2018-02-24 07:30 | NUR ---
PATIENT RECEIVED FROM UNATTENDED GROUND SENSOR SPECIALIST NURSE. PATIENT IS AWAKE IN BED NO SIGNS OF ACUTE DISTRESS. PATIENT IS ABLE TO SQUEEZE HANDS TO COMMUNICATE YES OR NO. CALM DEMEANOR MOST OF THE TIME BUT CAN GET IRRITATED WHEN HANDLING G-TUBE. IV IN RIGHT HAND IS CLEAN AND WITHOUT REDNESS. ADAME CATH DRAINING LULY COLORED URINE WITH SOME SEDIMENTS AND 2 BLOOD CLOTS SEEN. SKIN IS DRY AROUND KYA STRUCTURES AND ON RIGHT THIGH. BED IN LOWEST POSITION, ROOM IS CLEAN AND FREE OF CLUTTER, AND WILL ENSURE FREQUENT ROUNDS TO PREVENT INJURES AND TO ENSURE SAFETY.
--- NOTE | 2018-02-24 08:30 | NUR ---
DUE MEDIATIONS ARE BEING PREPARED AND WILL BE GIVEN. GAURI IS NOT AVAILABLE. WILL CALL PHARMACY TO RE-STOCK.
[2018-02-24] MEDS: FLUDROCORTISONE 0.1 MG TAB GT SCH (08:37)
[2018-02-24] MEDS: ARIPiprazole 10 MG TAB GT SCH (08:37)
[2018-02-24] MEDS: LACTOBACILLUS RHAMNOSUS GG 1 EACH CAP GT SCH (08:37)
[2018-02-24] MEDS: MULTIVITAMIN/MINERALS 15 ML UDBTL GT SCH (08:38)
[2018-02-24] MEDS: DOCUSATE 100 MG/10 ML UDC PO SCH ×2 (08:39→20:50)
[2018-02-24] MEDS: levETIRAcetam 100 MG/ML ORASYR GT SCH ×2 (10:07→20:50)
--- NOTE | 2018-02-24 10:30 | NUR ---
PATIENT IS RESTING IN BED. CALL LIGHT WITHIN REACH, WILL CONTINUE HOURLY ROUNDS
[2018-02-24] MEDS ORDERED: BACTO TP (11:32)
[2018-02-24] MEDS ORDERED: CEFT2PDS66 IV (11:32)
[2018-02-24] MEDS ORDERED: ZGUARD TP (11:32)
[2018-02-24] MEDS ORDERED: CHLO118S2 TP (11:32)
[2018-02-24] MEDS ORDERED: LACT10CA GT (11:32)
--- NOTE | 2018-02-24 11:32 | NUR ---
FAXED CONCURRENT REVIEW TO [facility] [phone] PHONE DIAZ [phone] [facility] AND ASKED ABOUT TRANSPORT BACK TO [facility] IF PATIENT DISCHARGED OVER THE WEEKEND. SHE SAID NO AUTH NEEDED, CALL RAULITO AT [phone] Addendum: 02/24/18 at 1136 by Genevieve Pimentel DIAZ FROM 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
--- NOTE | 2018-02-24 12:30 | NUR ---
PATIENT IS AWAKE IN BED. REPOSITIONED FOR PATIENT COMFORT. PATIENT TOLERATED DUE MEDICATIONS WELL. HOB PLACED AT 35 DEGREES FOR PATIENT COMFORT. LINES ORGANIZED FOR PATIENT SAFETY. WILL CONTINUE TO MONITOR
[2018-02-24] MEDS: NACL 0.9% IV SCH ×2 (13:25→20:51)
[2018-02-24] MEDS: CEFTAZIDIME IV SCH ×2 (13:25→20:51)
--- NOTE | 2018-02-24 13:30 | NUR ---
02/24/18 RD FOLLOW UP COMPLETED PLEASE REFER TO NUTRITION PROGRESS NOTE UNDER CARE ACTIVITY FOR ESTIMATED NUTRITIONAL NEEDS. 1. RECOMMEND DECREASE GOAL RATE OF PEPTAMEN AF TO 45 ML/HR (1080 TOTAL ML), PROVIDING 1296 KCAL, 82 GM PROTEIN, AND 873 ML FREE WATER. NEW GOAL RATE IS ADEQUATE TO MEET 100% OF ESTIMATED KCAL NEEDS. 2. RECOMMEND PROSOURCE NO CARB TID (180 KCAL/DAY, 45GM PROTEIN/DAY) TO BETTER MEET ESTIMATED PROTEIN NEEDS. WITH NEW TF GOAL RATE, THIS ADEQUATELY MEETS 89% PROTEIN NEEDS. 3. CONTINUE 75ML Q4H WATER FLUSHES 4. RD TO FOLLOW-UP 2-3 DAYS, HIGH RISK DASHAWN KIM, HAIDER
--- NOTE | 2018-02-24 14:00 | NUR ---
BLOOD GLUCOSE 96 NO COVERAGE NEEDED
--- NOTE | 2018-02-24 14:30 | NUR ---
PATIENT IS AWAKE IN BED, BECAME FRUSTRATED WHEN CHECKING RESIDUALS THROUGH G-TUBE, SHOWED FACIAL GRIMACES AND TRIED TO GRAB MY HAND. REASSURED PATIENT THAT WE CHECK RESIDUALS BECAUSE SHE HAS A CONTINUOS TUBE FEEDING. PATIENT BEGAN TO CALM DOWN AFTER. RESIDUALS AT 20 ML, YELLOW IN COLOR AND RETURNED TO PATIENT. PATIENT LEFT WITH HOB AT 35 DEGREES AND CALL LIGHT WITHIN REACH. REORIENTATED ON HOW TO USE CALL LIGHT
[2018-02-24] MEDS: CHLORHEXADINE GLUC 2% CLOTH TP SCH (15:43)
[2018-02-24] MEDS: MUPIROCIN 2% OINT 22 GM TUBE TP SCH (15:43)
--- NOTE | 2018-02-24 16:30 | NUR ---
PATIENT SLEEPING IN BED, READJUSTED 2 PILLOWS FOR PATIENT COMFORT. CONVERTED IV TO SALINE LOCK D/T SLIGHT AMOUNT OF BLOOD AT IV SITE. PATIENT DEMONSTRATED FACIAL GRIMACES AND WAS TOUCHING SITE. SALINE LOCK FLUSHED AND IS PATIENT. RIGHT ARM WAS PLACED UNDER A PILLOW FOR SUPPORT. NO OTHER SIGNS OF REDNESS, INFILTRATION, OR INFECTION NOTED. WILL CONTINUE TO MONITOR.
--- NOTE | 2018-02-24 17:16 | NUR ---
PT REMAINS ON VENT SETTINGS AC 16, VT 500, PEEP 5 AND FIO2 24%. TRACH REMAINS SECURE WITH A PATENT AIRWAY. PT IS NOT IN RESPIRATORY DISTRESS AT THIS TIME. VENT ALARMS REMAIN ON AND FUNCTIONING.
[2018-02-24] MEDS: Z-GUARD PASTE TP SCH (17:30)
--- NOTE | 2018-02-24 19:30 | NUR ---
RECEIVED BEDSIDE REPORT FROM DAY SHIFT NURSE ELLIOTT RN, PT STABLE, NO DISTRESS NOTED, IV TO R FA 22G SL, PATENT, INTACT, PT ON TRACH TO VENT FIO2 24%, RR 14, TV 500, PEEP 5, NO SOB, FLACC 0, PT SLEEPING, ADAME IN PLACE DRAINING YELLOW URINE WITH SMALL BLOOD CLOTS, GTUBE IN PLACE, TUBE FEEDING PEPTAMEN AF 50ML/HR WITH H2O 75ML Q4H, PT TOLERATED WELL, RESIDUAL 40ML, INITIAL ASSESSMENT DONE, ALL SAFETY PRECAUTION MET, WILL CONTINUE TO MONITOR.
--- NOTE | 2018-02-24 19:35 | NUR ---
ASSESSED PATIENT AND COMPLETED VENT CHECK. PATIENT IS ON CURRENT SETTINGS OF AC 16, 500, +5, 24%. PATIENT APPEARS COMFORTABLE WITH NO RESPIRATORY DISTRESS. WILL CONTINUE TO MONITOR.
--- NOTE | 2018-02-24 20:00 | NUR ---
DR. MILLER AT BEDSIDE, NOTED TO DREarl PT HAD HEMATURIA. STATED IT IS WITHIN NORMAL LIMITS WITH THE ADAME. PT STABLE, NO DISTRESS NOTED, CALL LIGHT WITHIN REACH, WILL CONTINUE TO MONITOR.
--- NOTE | 2018-02-24 20:50 | NUR ---
DUE MEDICATION GIVEN, PT REFUSES BLOOD GLUCO CHECK, PT WOULD NOT OPEN HER FIST, PT TOLERATE MEDICATION WELL, CALL LIGHT WITHIN REACH, WILL CONTINUE TO MONITOR.
--- NOTE | 2018-02-24 22:45 | NUR ---
CHECKED ON PT, PT SLEEPING, NO DISTRESS NOTED, CALL LIGHT WITHIN REACH, WILL CONTINUE TO MONITOR.
--- NOTE | 2018-02-24 23:46 | NUR ---
CHECKED ON PT, PT SLEEPING, NO DISTRESS NOTED, RT AT BEDSIDE, CHECKED V/S WNL, CALL LIGHT WITHIN REACH, WILL CONTINUE TO MONITOR.
[2018-02-25] VITALS: BP 138/63
--- NOTE | 2018-02-25 01:00 | NUR ---
NEW TUBE FEEDING ADMINISTERED, PT TOLERATED WELL, PT HAD 40ML RESIDUAL, CALL LIGHT WITHIN REACH, WILL CONTINUE TO MONITOR.
--- NOTE | 2018-02-25 02:19 | NUR ---
PT SLEEPING, NO DISTRESS NOTED, CALL LIGHT WITHIN REACH, WILL CONTINUE TO MONITOR.
--- NOTE | 2018-02-25 03:45 | NUR ---
CHANGED AND REPOSITIONED PT, PT TOLERATED WELL, NO DISTRESS NOTED, PT TRIED TO HIT AGRICULTURAL ENGINEERING TECHNOLOGIST AND NURSE, CALL LIGHT WITHIN REACH, WILL CONTINUE TO MONITOR.
[2018-02-25 04:00] VITALS: BP 135/69
[2018-02-25] MEDS: NACL 0.9% IV SCH ×2 (04:18→14:36)
[2018-02-25] MEDS: VALPROIC ACID 250 MG/5 ML UDC GT SCH ×2 (04:18→14:31)
[2018-02-25] MEDS: CEFTAZIDIME IV SCH ×2 (04:18→14:36)
--- NOTE | 2018-02-25 04:18 | NUR ---
DUE MEDICATION ADMINISTERED, PT TOLERATED WELL, NO DISTRESS NOTED, CALL LIGHT WITHIN REACH, WILL CONTINUE TO MONITOR.
--- NOTE | 2018-02-25 05:40 | NUR ---
CHANGED HME AND INNER CANNULA. ASSESSED TRACH SITE AND GAUZE. SITE APPEARS CLEAN, HEALTHY, INTACT AND WITH NO DRAINAGE. GAUZE IS ALSO CLEAN.
[2018-02-25] MEDS: BLOOD GLUCOSE MONITORING 1 DEV DEV FS SCH ×3 (06:30→17:15)
--- NOTE | 2018-02-25 06:30 | NUR ---
ATTEMPT TO CHECK PT BLOOD SUGAR, PT REFUSED, PT STABLE, NO DISTRESS NOTED, CALL LIGHT WITHIN REACH, WILL CONTINUE TO MONITOR.
--- NOTE | 2018-02-25 07:20 | NUR ---
ENDORSED PLAN OF CARE TO DAY SHIFT NURSE SLOANE RN, PT STABLE, NO DISTRESS NOTED, CALL LIGHT WITHIN REACH.
[2018-02-25 07:22] LABS: BASOPHILS % (AUTO) 0.2 % (0.0-2.0); EOSINOPHILS # (AUTO) 0.2 K/uL (0-0.4); EOSINOPHILS % (AUTO) 2.1 % (0.0-4.0); HEMATOCRIT 36.9 % (36-48); HEMOGLOBIN 11.9 g/dL (12.0-16.0); LYMPHOCYTES # (AUTO) 3.4 K/uL (2.5-16.5); LYMPHOCYTES % (AUTO) 38.1 % (20.5-51.1); MEAN CORPUSCULAR HEMOGLOBIN 27 pg (27-31); MEAN CORPUSCULAR HGB CONC 32 g/dL (33-37); MEAN CORPUSCULAR VOLUME 82.6 fL (80-94); MONOCYTES # (AUTO) 0.6 K/uL (0.8-1.0); MONOCYTES % (AUTO) 6.4 % (1.7-9.3); NEUTROPHILS # (AUTO) 4.7 K/uL (1.8-7.7); NEUTROPHILS % (AUTO) 53.2 % (42.2-75.2); PLATELET COUNT (AUTO) 153 K/uL (140-450); RED BLOOD CELL COUNT(AUTO) 4.47 MIL/uL (4.20-5.40); WHITE BLOOD COUNT (AUTO) 8.9 K/uL (4.8-10.8)
--- NOTE | 2018-02-25 07:22 | NUR ---
REPORT RECEIVED FROM JUNIOR BUSINESS ANALYST, PT AWAKE, RESTING QUIETLY, TRACH TO VENT, APPEARS IN NAD, PLAN OF CARE REVIEWED, ALL SAFETY MEASURES IN PLACE, LAB AT BEDSIDE FOR BLOOD DRAW, BEDSIDE GLUCOSE CHECK DONE, 76, GT FEED ON GOING, RT AT BEDSIDE, WILL CONTINUE TO MONITOR.
[2018-02-25 07:44] LABS: ANION GAP 11.7 (8-16); CARBON DIOXIDE 28.1 mmol/L (21-32); POTASSIUM 3.8 mmol/L (3.5-5.1)
[2018-02-25 07:50] LABS: MAGNESIUM 2.2 mg/dL (1.8-2.4); PHOSPHORUS 3.9 mg/dL (2.5-4.9)
[2018-02-25 08:00] VITALS: BP 128/67
--- NOTE | 2018-02-25 09:04 | NUR ---
VENT CHECK, NO SXN NEEDED AIRWAY IS PATENT AND PT IS SLEEPING
[2018-02-25] MEDS: ARIPiprazole 10 MG TAB GT SCH (09:40)
[2018-02-25] MEDS: DOCUSATE 100 MG/10 ML UDC PO SCH (09:40)
[2018-02-25] MEDS: MULTIVITAMIN/MINERALS 15 ML UDBTL GT SCH (09:40)
[2018-02-25] MEDS: levETIRAcetam 100 MG/ML ORASYR GT SCH (09:41)
[2018-02-25] MEDS: LACTOBACILLUS RHAMNOSUS GG 1 EACH CAP GT SCH (09:41)
[2018-02-25] MEDS: FLUDROCORTISONE 0.1 MG TAB GT SCH (09:41)
--- NOTE | 2018-02-25 09:50 | NUR ---
DUE MEDS GIVEN PER GT, PT CLEMENTINA WELL, RESIDUAL 3ML, TRACH SUCTIONED FOR SECRETION, WHITE FOAM DRAINAGE, PT CLEMENTINA WELL, O2 SAT 99%
--- NOTE | 2018-02-25 10:45 | NUR ---
VENT CHECK, SXN PT SMALL AMT OF CREAM COLOR SECRETIONS, PT IS RESTING WITH NO SIGNS OF DISTRESS NOTED AT THIS TIME
--- NOTE | 2018-02-25 11:15 | NUR ---
CALLED [facility] (# [phone]), SPOKE WITH CEASAR ROSE SUP., PT CAN GO TO ROOM 402-A. CEASAR WANTS US TO FAX PT'S MED LIST TO FAX # [phone].
--- NOTE | 2018-02-25 11:20 | NUR ---
CALLED [facility] (#[phone]) AND SPOKE WITH SAMANTHA, AFTER GIVING THE REQUIRED INFORMATION REGARDING PT'S TRANSPORTATION BACK TO FAC[facility], SAMANTHA STATED SHE WILL GIVE ME A CALL BACK BETWEEN 40 MINS TO 4 HRS FOR ETA OF CRITICAL CARE TRANSPORTATION , BARIATRIC [place]. EDITH ASSIGNED NOTIFIED. Addendum: 02/25/18 at 1150 by Kristel Weber RN RESERVATION # [id number]
--- NOTE | 2018-02-25 11:51 | NUR ---
PERICARE, BED BATH, LINEN CHANGE, GOWN CHANGED, DRESSING CHANGED, PT CLEMENTINA WELL, WILL CONTINUE TO MONTIOR.
--- NOTE | 2018-02-25 11:56 | NUR ---
PT'S MEDICATION LIST FAXED TO [facility] REQUESTED BY ELKE CALDERÓN. CONFIRMATION ATTACHED TO CHART.
[2018-02-25 12:00] VITALS: BP 122/65
[2018-02-25] MEDS ORDERED: SULF-59 PO (12:18)
--- NOTE | 2018-02-25 13:14 | NUR ---
VENT CHECK, NO SXN NEEDED AIRWAY IS PATENT AND PT IS SLEEPING
--- NOTE | 2018-02-25 14:03 | NUR ---
REPORT CALLED TO [facility] ENGLISH, CEASAR MENDEZ, ALL QUESTIONS ASKED AND ANSWERED, AWAITING TRANSPORT
--- NOTE | 2018-02-25 14:07 | NUR ---
DAUGHTER BONILLA [phone], NO ANSWER, SON PARMINDER RAZO [phone] CALLED AND NOTIFIED OF TRANSFER BACK TO [facility] TODAY, SON VERBALIZED FULL UNDERSTANDING.
--- NOTE | 2018-02-25 14:59 | NUR ---
vent check, no sxn needed airway is patent and pt is sleeping with no signs of distress noted at this time
[2018-02-25] MEDS: CHLORHEXADINE GLUC 2% CLOTH TP SCH (15:02)
[2018-02-25] MEDS: MUPIROCIN 2% OINT 22 GM TUBE TP SCH (15:03)
--- NOTE | 2018-02-25 15:35 | NUR ---
FOLLOW UP CALL MADE TO [facility] (#[phone]) REGARDING ETA OF PT'S TRANSPORTATION, WAS ABLE TO SPEAK WITH DASHAWN (AFTER 30 MINS OF BEING HELD ON THE THE PHONE) STATED THAT THEY ARE HAVING A HARD TIME GETTING A TRANSPORTATION FOR THIS PT DUE TO THE ISSUE OF VENT AND BARIATRIC GURNEY AND SHE ASKED FOR ANY RECOMMENDATIONS FOR TRANSPORT IN [facility] FOR THEY ARE NOT FAMILIAR OF WHAT WE ARE USING HERE IN [facility] SINCE THEY ARE LOCATED IN [place]. SUGGESTED [facility] TRANSPORT TO DASHAWN AND STATED SHE WILL GIVE ME A CALL FOR ETA. NURSE SLOANE NOTIFIED.
[2018-02-25 16:00] VITALS: BP 131/66
--- NOTE | 2018-02-25 17:00 | NUR ---
[facility] HERE FOR TRANSPORT, REPORT GIVEN TO FIELD EDUCATION DIRECTOR, DC TO [facility] AT IS TIME
[2018-02-25] MEDS: Z-GUARD PASTE TP SCH (17:15)
== END 2018-02-25 17:05 | disposition home or self-care (01) | DRG 222 ==
LOC: MED 06:50 → MTU 08:09
PROVIDERS: ADMIT Student in an Organized Health Care Education/Training Program; ATTEND Student in an Organized Health Care Education/Training Program
PROC: 5A1955Z Respiratory Ventilation, Greater than 96 Consecutive Hours (ICD-10-PCS; 2018-02-22)
PROC: 0BH17EZ Insertion of Endotracheal Airway into Trachea, Via Natural or Artificial Opening (ICD-10-PCS; 2018-02-22)
PROC: 0DW64UZ Revision of Feeding Device in Stomach, Percutaneous Endoscopic Approach (ICD-10-PCS; principal; 2018-02-22 10:00)
DX: K94.23 Gastrostomy malfunction (principal); J96.20 Acute and chronic respiratory failure, unspecified whether with hypoxia or hypercapnia; N17.0 Acute kidney failure with tubular necrosis; E43 Unspecified severe protein-calorie malnutrition; Z93.0 Tracheostomy status; J44.9 Chronic obstructive pulmonary disease, unspecified; Z68.42 Body mass index [BMI] 45.0-49.9, adult; R13.10 Dysphagia, unspecified; F20.9 Schizophrenia, unspecified; I10 Essential (primary) hypertension; K21.9 Gastro-esophageal reflux disease without esophagitis; E66.9 Obesity, unspecified; E11.9 Type 2 diabetes mellitus without complications; E83.42 Hypomagnesemia; E87.6 Hypokalemia; G40.909 Epilepsy, unspecified, not intractable, without status epilepticus; N39.0 Urinary tract infection, site not specified; Z88.0 Allergy status to penicillin; Z88.1 Allergy status to other antibiotic agents; Z86.73 Personal history of transient ischemic attack (TIA), and cerebral infarction without residual deficits; Z22.322 Carrier or suspected carrier of Methicillin resistant Staphylococcus aureus
CPT/HCPCS: 36415; 71045; 76770; 80048; 80053; 81001; 82150; 82948; 83036; 83690; 83735; 83880; 84100; 84439; 84443; 84484; 85025; 85610; 85730; 87070; 87081; 87086; 87186; 87205; 89220; 93005; 94003; 94640; 99285; J0696; J0713; J1200; J1815; J2250; J3010; J3475; J7030; J7060; J7620; Q0092